=== PATIENT | male | born 1965 | race Caucasian/White ===

== ENCOUNTER 2019-04-15 01:27 | Day surgery (SDC) | payer OTHER, BC, SELFPAY ==
[2019-04-01 09:06] VITALS: BMI 29.2
[2019-04-15] VITALS (13 sets, daily range): BP systolic 110–145; BP diastolic 68–91; PULSE 82–107; RESP 12–21; TEMP 36.1–36.2; O2SAT 90–99; BMI 29.6
[2019-04-15] MEDS: LACTATED RINGERS 1,000 ML 30 ML IV CONT ×2 (07:00→11:29)
--- NOTE | 2019-04-15 07:03 | P.PNAN_ITS ---
Anes - Initial Pre Proc Eval Procedure: Operation Date: 04/15/19 07:30 Proposed Procedures p Left Arthroscopic Rotator Cuff Repair, Proceed As Indicated - Alex Blanco MD Date/Time: 04/15/19 07:03 Surgeon: Alex Blanco MD Pre Op Diagnosis: left rotator cuff tear Patient Data Age: 53 Gender: M Height: 1.75 m Weight: 91 kg Last Vital Signs Temp 36.1 C L 04/15/19 06:50 Pulse 90 04/15/19 06:50 Resp 14 04/15/19 06:50 BP 138/91 H 04/15/19 06:50 Pulse Ox 98 04/15/19 06:50 Allergies Allergy/AdvReac Type Severity Reaction Status Date / Time No Known Allergies Allergy Unverified 04/15/19 06:43 Home Medications Medication Instructions Recorded Confirmed Type chlorpheniramine maleate [Allergy 4 mg PO Q4H PRN 04/01/19 04/01/19 History 4-Hour] fluticasone propionate [Flonase 2 spray INTRANASAL DAILY 04/01/19 04/01/19 History Allergy Relief] naproxen sodium [Aleve] 220 mg PO DAILY 04/01/19 04/01/19 History omega 8-kbv-vcn-fish oil [Fish Oil] 1 cap PO DAILY 04/01/19 04/01/19 History Patient hx anesthesia problems: none Family hx anesthesia problems: none [facility] Social History Social History Smoking status: Never smoker Alcohol intake: current Anes - Eval Final PreProcedure Day of Procedure 04/15/19 07:03 Patient weight: overweight Heart: regular rate and rhythm Lungs: clear to auscultation and normal air movement Airway: Mallampati scale class II Neurological: alert and oriented Last oral intake: >/= 8 hours ASA classification: II Emergent: no Anesthetic plan: proceed Anesthesia type and monitoring: general ETT Informed Consent: The patient's anesthetic plan and its attendant risks and benefits were discussed with the patient/family/POA. Questions were solicited and answers provided to the satisfaction of the patient/family/POA.
--- NOTE | 2019-04-15 07:05 | WPDANESPNB ---
Anes - Peripheral Nerve Block Date/Time: 04/15/19 07:05 I have discussed with the patient/family/POA the placement of a peripheral nerve block for post-operative pain management, including associated risks, benefits, complications, and side effects. Alternative methods of post-operative analgesia were detailed. Questions were solicited and answers provided to the satisfaction of the patient/family/POA. Time-Out: A pre-procedural Time-Out was completed immediately before starting the procedure and confirmed: Patient Identification, Site, Procedure, Patient Position and the Availability of Requisite Equipment. Clinical Indications: Acute post-operative pain management requested by the operative surgeon. Nerve Block Insertion Note Anes-nerve block: supraclavicular left Patient position: supine Skin prep: chlorhexidine Needle: 22 gauge, stimulating, insulated echogenic needle. Needle length: 80 mm Technique: ultrasound (in plane) Injectate: bupivacaine 0.5% with epi 5 mcg/ml (20cc) Observations: tolerated well Complications: none
--- NOTE | 2019-04-15 07:22 | WPDHPUPDATE1 ---
History and Physical Update Update Date/Time: 04/15/19 07:22 History and Physical has been reviewed, including an updated exam of the patient. There are NO changes in the patient's condition. Risks, benefits, and alternatives have been discussed and questions answered. Patient agrees to proceed with procedure.
[2019-04-15] MEDS: ceFAZolin 2 GM/D5W 50 ML 2 GM/50 ML BAG IVPB (07:28)
[2019-04-15] MEDS: BUPIVACAINE/EPINEPHRINE 0.5% 30 ML VIAL INFILTRATE (08:13)
[2019-04-15] MEDS: IBUPROFEN IV 800 MG/200 ML 800 MG/200 ML BAG 400 MG IVPB (08:25)
--- NOTE | 2019-04-15 11:06 | PM.PROC ---
Procedure Note - Detailed Date of procedure: 04/15/19 Pre-op diagnosis: left rotator cuff tear Post-op diagnosis: other (1. Massive rotator cuff tear 2. Labral tear 3. Biceps tendinosis) Procedure performed: 1. Arthrosocopic left shoulder rotator cuff repair 2. subacromial decompression 3. biceps tenodesis 4. labral debridement. Description of procedure: Massive tear including the subscapularis, supraspinatus and infraspinatus. Mild retraction. Good tissue quality. 5 arthroscopic tunnel repair with 3 simple sutures each. Bicpes tenodesis incorporated into the subscapularis repair. Posterior labral tear as seen on MRI, was debrided. Acromioplasty performed. Implants: #2 suture tape and #2 orthocord. Arthrotunner device. Anesthesia: GETA and local Surgeon: Alex Blanco MD Estimated blood loss (mL): 50 Complications: None Condition: stable Disposition: PACU Findings: Operative detail: Preoperative antibiotics were given. The patient was bought brought to the operating room. A general anesthetic was administered. The patient was carefully positioned in the beach chair position. The head and neck were carefully positioned. The non operative extremity was also carefully positioned. The shoulder was prepped and draped in the usual sterile fashion. Examination under anesthesia revealed no significant findings. Standard posterior and anterior arthroscopic portals were established. 3 accessory portals were later created. Inflow was achieved with the arthroscopic pump using saline. The glenohumeral joint was carefully inspected. The posterior labrum was degenerative and torn. Debridement was perfomed with the shaver and punches. The biceps tendon was frayed and unstable. The upper subscapularis was completely torn. The biceps was released, for later tendodesis. The articular cartilage showed grade I chondromalacia throughout most of the humeral head. It appeared very slightly rough and soft. The glenoid showed no changes. Attention was turned to the subacromial space. A complete bursectomy was performed. The bursa was thickened and scarred, consistent with the previous arthroscopic surgery history. The debridement was tedious. Bleeding was more than usual. The supra and infra tears were type I with mild retraction. The tissue was good. The rotator cuff and footprint were lightly debrided. A modest acromioplasty was performed. The tear configuration was carefully assessed. The subscapularis was repaired first with two arthroscopic bone tunnels. The lateral drill pierced the biceps and entered bone at the groove. This was ideal to incorporate the biceps tenodesis into the cuff repair. Tension of the biceps was carefully optimized. A total of 5 sutures were passed and then tied. At this point, 3 tunnels were created at the rotator cuff. The ArthroTunneler technique was utilized. Three sutures were passed through each tunnel. All sutures were then passed through the cuff tissue. The sutures were tied arthroscopically. The arthroscopic instruments were removed. The wounds were closed with 3-0 Monocryl subcuticular suture and steri strips. There were no complications. A sling was applied and the patient brought to the recovery room.
[2019-04-15] MEDS: DICLOFENAC SODIUM 0.1% OPHTH SOLN 2.5 ML BOTTLE 1 DROP EACH EYE (12:22)
[2019-04-15] MEDS: PROPARACAINE HCL 0.5% 15 ML OPHTH SOLN 1 DROP EACH EYE (12:22)
--- NOTE | 2019-04-15 15:57 | SUR.PHASEII ---
1445; PT DRESSED AND READY TO GO HOME. PT HAS EXTRA IMMOBILIZER (DOMINGUEZ) IN BOX TO TAKE WITH THEM. PT AND SPOUSE ASKING FOR A PRESCRIPTION FOR VALIUM. 1450; CALLED DR WHEELER'S OFFICE. THEY WILL ASK THE DOCTOR. 1500; PT WANTS TO GO HOME. WILL WAIT FOR OFFICE TO CALL AT HOME.
== END 2019-04-15 15:00 | disposition home or self-care (01) ==
PROVIDERS: PCP Family Medicine; Visit Provider Orthopaedic Surgery
PROC: (CPT 29805; principal; 2019-04-15 07:30)
DX: M75.102 Unspecified rotator cuff tear or rupture of left shoulder, not specified as traumatic (principal); M75.82 Other shoulder lesions, left shoulder; M75.22 Bicipital tendinitis, left shoulder
CPT/HCPCS: 29827; 29828; 29826; A4565; A9270; J0131; J0330; J0690; J1100; J1741; J2250; J2405; J2704; J3010; J7120

== ENCOUNTER → 2021-01-27 08:52 | Outpatient (CLI) | payer BC, SELFPAY ==
--- NOTE | ~2021-01-27 | MR_ITS ---
EXAMINATION: MR shoulder RT wo con DATE: 01/27/2021 09:54 INDICATION: Right shoulder pain. TECHNIQUE: Magnetic resonance imaging (MRI) of the right shoulder was performed without intravenous c ontrast. Sequences included axial PD-weighted FS FSE, coronal oblique PD-weighted FS FSE and T2-weigh basilio FS FSE, and sagittal oblique T2-weighted FS FSE and T1-weighted FSE. COMPARISON: Right shoulder radiographs 01/03/2021 FINDINGS: Coracoacromial arch: The acromion undersurface is flat in morphology (type I). There is severe acromioclavicular joint ost eoarthritis. There is mild subacromial/subdeltoid bursitis. Rotator cuff: There is a full-thickness tear of anterior supraspinatus tendon measuring 8 mm anterior to posterior by 8 mm proximal to distal. There is a contiguous articular sided partial thickness tear of supraspin atus and infraspinatus tendons measuring 8 mm anterior to posterior by 26 mm proximal to distal. Jazmin s minor tendon is normal. There is severe subscapularis tendinopathy, which is thin superiorly. There is mild fatty atrophy of infraspinatus muscle belly. There is volume loss and mild fatty atrophy of superior subscapularis muscle belly. Biceps tendon and glenoid labrum: There is a complete tear of proximal biceps tendon. There is degenerative tearing of superior glenoid labrum. Fluid: There is a small glenohumeral joint effusion. Bones/cartilage: There is cartilage surface irregularity of glenoid and humeral head. IMPRESSION: 1. Full-thickness rotator cuff tear. 2. Mild glenohumeral joint chondrosis. 3. Small glenohumeral joint effusion and moderate subacromial/subdeltoid bursitis. 4. Complete tear of proximal biceps tendon. 5. Severe acromioclavicular joint osteoarthritis. Reviewed, dictated and finalized at location A. LE ATTACHING MACHINE OPERATOR IMPRESSION: 1. Full-thickness rotator cuff tear. 2. Mild glenohumeral joint chondrosis. 3. Small glenohumeral joint effusion and moderate subacromial/subdeltoid bursit is. 4. Complete tear of proximal biceps tendon. 5. Severe acromioclavicular joint osteoarthritis.
== END ==
PROVIDERS: Visit Provider Orthopaedic Surgery
DX: M75.101 Unspecified rotator cuff tear or rupture of right shoulder, not specified as traumatic (principal); M75.51 Bursitis of right shoulder; M25.411 Effusion, right shoulder; M19.011 Primary osteoarthritis, right shoulder
CPT/HCPCS: 73221

== ENCOUNTER 2021-11-20 00:30 | Day surgery (SDC) | payer BC, SELFPAY ==
[2021-02-19 11:35] VITALS: BMI 31.1
--- NOTE | 2021-02-19 11:53 | PC.NURSE ---
Report to the Outpatient Waiting Room, entrance under the green pavilion located off [facility], at time 1000 on date 02/26/21. OR Time: 1200. - You will be asked a series of questions to screen for COVID 19 for your protection. - A mask is required within the hospital. - No visitors are allowed at this time. Preoperative COVID Testing Requirements: No COVID Test needed if: (proof is required; if not received patient will have Rapid Test prior to entry) - Patient has received COVID Vaccine at least 14 days prior to procedure date or - Patient has positive COVID test result within last 90 days of surgery date. COVID Test needed if above criteria is not met Patients may have clear liquids (water, carbonated beverages, clear teas, apple juice) until 3 hours prior to surgery with a maximum of 20 ounces. - No food from midnight until time of surgery Take the following medications with a SIP of water the morning of surgery: NONE Medications to discontinue per physician: VITAMINS/SUPPLEMENTS Date to take last dose: 02/22/21 STOP ALEVE 7 DAYS PRIOR TO SURGERY PER DR. WHEELER Please no make-up, nail italian, hairspray, perfume, deodorant, or body powder the day of surgery. No jewelry (including any body piercings) or valuables the day of surgery, leave them at home. Please take a shower or bath the night before, or the morning of, surgery with an antibacterial soap. Wear comfortable, loose fitting clothing. - Jewelry must be removed prior to entering the operating room. Rings and piercings that are not removed may be cut off. - The hospital will not accept responsibility for valuables. - Please leave all valuables, including medications, at home the day of surgery. If you are going home after surgery, a licensed tow car driver must drive you home. - NO public transportation without another adult. - We recommend that an adult stay with you for 24 hours following discharge. - We also recommend that you do not drive, make important decision, drink alcoholic beverages, or take any drugs that were not prescribed by your health care provider for at least 24 hours after your discharge time. Follow any additional instructions given to you from your surgeon. Telephone instructions given to JERED FISHER and asked if any additional questions and then verbalized understanding. Patient advised to call surgeon office or pre surgery nurse liaison [phone] if any additional questions.
[2021-11-14 10:12] VITALS: BMI 31.1
--- NOTE | 2021-11-14 10:17 | PC.NURSE ---
Report to the Outpatient Waiting Room, entrance under the green pavilion located off [facility], at time 0830 on date 11/20/21. OR Time: 1030. Time changes happen often and if your time is changed the preop area will call you the afternoon before. - You and your visitor will be asked to self-screen and do not enter if you have any COVID symptoms. - Only one visitor and NO children visitors are allowed at this time. - The patient visitor is requested to leave or wait in car when not with patient due to restrictions. - A mask is required within the hospital. Patients may have clear liquids (water, carbonated beverages, clear teas, apple juice) until 3 hours prior to surgery with a maximum of 20 ounces. - No food from midnight until time of surgery Take the following medications with a SIP of water the morning of surgery: NONE Medications to discontinue per physician: VITAMINS/SUPPLEMENTS Date to take last dose: 11/16/21 STOP NAPROXEN 7 DAYS PRIOR TO SURGERY Please no make-up, nail filipino, hairspray, perfume, deodorant, or body powder the day of surgery. No jewelry (including any body piercings) or valuables the day of surgery, leave them at home. Please take a shower or bath the night before, or the morning of, surgery with an antibacterial soap. Wear comfortable, loose fitting clothing. - Jewelry must be removed prior to entering the operating room. Rings and piercings that are not removed may be cut off. - The hospital will not accept responsibility for valuables. - Please leave all valuables, including medications, at home the day of surgery. If you are going home after surgery, a licensed show horse driver must drive you home. - NO public transportation without another adult. - We recommend that an adult stay with you for 24 hours following discharge. - We also recommend that you do not drive, make important decision, drink alcoholic beverages, or take any drugs that were not prescribed by your health care provider for at least 24 hours after your discharge time. Follow any additional instructions given to you from your surgeon. If you or anyone in your household have experienced Covid symptoms in the past week, please notify your surgeon or the nurse liaison at the phone number below for possible testing. Telephone instructions given to PT - DELROY FISHER and asked if any additional questions and then verbalized understanding. Patient advised to call surgeon office or pre surgery nurse liaison [phone] if any additional questions.
--- NOTE | 2021-11-19 12:41 | P.PNAN_ITS ---
Anes - Initial Pre Proc Eval Procedure: Operation Date: 11/20/21 10:30 Proposed Procedures p Arthroscopic Right Rotator Cuff Repair - Alex Blanco MD Date/Time: 11/19/21 12:41 Surgeon: Alex Blanco MD Pre Op Diagnosis: right rotator cuff tear Patient Data Age: 56 Gender: M Height: 1.73 m Weight: 93 kg Allergies Allergy/AdvReac Type Severity Reaction Status Date / Time clavulanic acid Allergy Gastrointestinal Verified 11/16/21 08:55 Upset Home Medications Medication Instructions Recorded Confirmed Type fluticasone propionate 50 2 spray intranasal DAILY 04/01/19 11/20/21 History mcg/actuation nasal spray,suspension (Flonase Allergy Relief) omega 6-jca-bsg-fish oil 1,000 mg 1 cap PO DAILY 04/01/19 11/20/21 History (120 mg-180 mg) capsule (Fish Oil) naproxen sodium 220 mg capsule 220 mg PO BID PRN Pain 10/06/19 11/20/21 History (Aleve) multivitamin 1 tablet PO DAILY 02/19/21 11/20/21 History levocetirizine 5 mg tablet (Xyzal) 5 mg PO HS 11/14/21 11/20/21 History Patient hx anesthesia problems: none Family hx anesthesia problems: none Results Review: All pre-operative results and documents have been reviewed as part of the pre- operative evaluation. [facility] Past Medical History Medical History Biceps tendonitis on left Complete tear of right rotator cuff Labral tear of shoulder, degenerative Orthopedic aftercare Osteoarthritis, hip, bilateral Rotator cuff sprain Rotator cuff tear, left Surgical History Surgical History Status post left rotator cuff repair (~04/15/19) Family History Family History Other Family history of malignant neoplasm Social History Social History Smoking packs per day: 1 Smoking cigarettes per day: 20.0 Years smoked: 15 Smoking pack-years: 15.00 Smoking status: Former smoker Smoking end date: 02/17/13 Alcohol intake: current Drinks per week: 8 Substance use: never Substance use type: does not use Living arrangements: with family Spiritual care concerns: No Anes - Eval Final PreProcedure Day of Procedure 11/19/21 12:41 Patient weight: overweight Heart: regular rate and rhythm Lungs: clear to auscultation and normal air movement Airway: Mallampati scale class II Neurological: alert and oriented Last oral intake: >/= 8 hours ASA classification: II Emergent: no Anesthetic plan: proceed Anesthesia type and monitoring: general ETT Results Review: All pre-operative results and documents have been reviewed as part of the pre- operative evaluation. Informed Consent: The patient's anesthetic plan and its attendant risks and benefits were discussed with the patient/family/POA. Questions were solicited and answers provided to the satisfaction of the patient/family/POA.
[2021-11-20] VITALS (9 sets, daily range): BP systolic 118–156; BP diastolic 69–87; PULSE 75–97; RESP 12–16; TEMP 36.3; O2SAT 95–100
[2021-11-20] MEDS: LACTATED RINGERS 1,000 ML 30 ML IV CONT ×2 (09:06→14:00)
[2021-11-20] MEDS: ACETAMINOPHEN 500 MG TABLET 1000 MG PO (09:08)
[2021-11-20] MEDS: KETOROLAC 15 MG/ML VIAL (*BKC) IV PUSH (09:08)
--- NOTE | 2021-11-20 10:07 | WPDHPUPDATE1 ---
History and Physical Update Update Date/Time: 11/20/21 10:07 History and Physical has been reviewed, including an updated exam of the patient. There are NO changes in the patient's condition. Risks, benefits, and alternatives have been discussed and questions answered. Patient agrees to proceed with procedure.
[2021-11-20] MEDS: ceFAZolin 2 GM/D5W 50 ML 2 GM/50 ML BAG IVPB (10:13)
[2021-11-20] MEDS: BUPIVACAINE/EPINEPHRINE 0.25% 50 ML VIAL 20 ML INFILTRATE (10:53)
[2021-11-20] MEDS: oxyCODONE HCL (*CRX) 5 MG TAB IR PO (15:05)
--- NOTE | 2021-11-20 16:07 | W.PM.PROC2 ---
Procedure Note - Detailed Date of Procedure 11/20/21 Pre-op Diagnosis right rotator cuff tear Post-op Diagnosis Other (1. Rotator cuff tear, including the subscapularis. 2. Subacromial impingement 3. Degenerative labral tear) Procedure Performed Right shoulder 1. Arthroscopic rotator cuff repair 2. Arthroscopic subacromial decompression 3. Arthroscopic labral debridement Surgeon Alex Blanco MD Airplane Pilot Crop Dusting Yvette Cee PA-C Anesthesia General and Regional ( interscalene block) Findings Large supraspinatus crescent tear. Also large complete subscapularis tear. Biceps previously ruptured and scarred in the rotator interval. Degenerative labral tearing. Minimal early degenerative arthritis. No significant tendon retraction. Good tissue quality. Anatomic reconstruction with multiple points of fixation. Two bone tunnels in the lesser tuberosity for the subscapularis and 3 at the greater tuberosity for the wide, but minimally retracted supraspinatus tear. Description of Procedure Preoperative antibiotics were given. An interscalene block was administered in the preoperative area. The patient was bought brought to the operating room. A general anesthetic was administered. The patient was carefully positioned in the beach chair position. The head and neck were carefully positioned. The non operative extremity was also carefully positioned. The shoulder was prepped and draped in the usual sterile fashion. Examination was performed. Standard posterior and anterior arthroscopic portals were established. Inflow achieved with the arthroscopic pump using saline and epinephrine. The glenohumeral joint was carefully inspected. Biceps was noted to be ruptured and the labrum was debrided. The subscapularis was peeled away and scarred to the bursa. It was carefully released from the subacromial bursa and full release was confirmed to make sure that the tendon was mobile. A tag stitch was placed at the upper corner. Attention was turned to the subacromial space. A complete bursectomy was performed. Some scarring in the bursa consistent with prior decompression was noted. The rotator cuff and footprint were lightly debrided. A modest acromioplasty was performed. The tear configuration was carefully assessed. At this point, 2 tunnels were created at the lesser tuberosity for the subscapularis repair. Later 3 tunnels were created at the supraspinatus for the supraspinatus repair. 2-3 sutures were passed through each tunnel. All sutures were then passed through the cuff tissue. The sutures were tied arthroscopically. The arthroscopic instruments were removed. The wounds were closed with 3-0 Monocryl subcuticular suture and steri strips. There were no complications. A sling was applied and the patient brought to the recovery room. Physician sales assistant entertainment and media, Yvette Cee PA-C, required for surgery; including patient positioning, draping, arthroscopic camera operation, maintaining instrument position, suture retrieval, wound closure, and dressing and sling placement. Estimated Blood Loss -20.0 Pathology None sent Complications No immediate complications Condition Stable Disposition PACU [facility] Billing Surgery - Charge Forward: Surgery Billing
== END 2021-11-20 15:50 | disposition home or self-care (01) ==
PROVIDERS: PCP Family Medicine; Visit Provider Orthopaedic Surgery
PROC: (CPT 29805; principal; 2021-11-20 10:30)
DX: M75.121 Complete rotator cuff tear or rupture of right shoulder, not specified as traumatic (principal); M75.41 Impingement syndrome of right shoulder; M75.81 Other shoulder lesions, right shoulder; Z87.891 Personal history of nicotine dependence
CPT/HCPCS: 29827; 29826; A4565; A9270; J0690; J1100; J1170; J1885; J2250; J2405; J2704; J3010; J7120

== ENCOUNTER 2022-08-15 10:39 | Emergency (ER) | payer BC, SELFPAY ==
--- NOTE | ~2022-08-15 | CT_ITS ---
EXAMINATION: CT brain wo con INDICATION: Headache COMPARISON: None TECHNIQUE: Standard unenhanced head CT. The dose-length product (DLP) was 605.33 mGy-cm. The mA was a djusted according to patient size. Iterative reconstruction technique was employed. FINDINGS: There is no intracranial hemorrhage, acute infarction, or abnormal mass lesion. The ventric les are normal. There is no abnormal mass effect or midline shift. The samuel-white matter differentiat ion is normal. The basal cisterns are patent. The orbits are normal. The paranasal sinuses, mastoids and calvarium are normal. IMPRESSION: 1. No acute intracranial abnormality. Reviewed, dictated and finalized at location L.
--- NOTE | ~2022-08-15 | XR_ITS ---
Portable chest x-ray Comparison: None Clinical History: CVA Findings: Lungs are clear, without focal consolidation or pleural effusion. Cardiomediastinal silho uette is unremarkable. Bones and soft tissues are unremarkable. Impression: Clear lungs. Reviewed, dictated and finalized at location M. Impression: Clear lungs.
--- NOTE | 2022-08-15 10:43 | ECG_ITS ---
Measurements Intervals Delta Rate: 96 P: 71 AR: 131 QRS: -4 QRSD: 109 T: 17 QT: 350 QTc: 444 Interpretive Statements SINUS RHYTHM NO PREVIOUS ECG AVAILABLE FOR COMPARISON Electronically Signed On 08-15-2022 11:52:43 CDT by Petar Carrion M.D.
[2022-08-15 10:52] VITALS: BP 152/92; PULSE 97; RESP 20; TEMP 36.8; O2SAT 95
[2022-08-15 10:54] LABS: Glucose Point of Care 110 mg/dl (65-105)
[2022-08-15 10:56] LABS: Basophils Absolute Auto 0.1 K/mm3 (0.0-0.1); Eosinophils Absolute Auto 0.1 K/mm3 (0-0.3); Hematocrit 41.8 % (42.0-52.0); Hemoglobin 13.9 g/dL (14.0-18.0); Immature Granulocyte Absolute 0.01 K/mm3 (0.00-0.031); Immature Granulocyte Percent A 0.2 % (0-0.5); Lymphocytes Absolute Auto 2.12 K/mm3 (0.9-3.2); Lymphocytes Percent Auto 43.4 % (18.3-44.2); Mean Corpuscular HGB Conc 33.3 g/dl (32-36); Mean Corpuscular Volume 90.1 fl (80-100); Mean Platelet Volume 10.1 fl (7.4-10.4); Monocytes Absolute Auto 0.7 K/mm3 (0.1-0.6); Monocytes Percent Auto 13.9 % (2.6-8.5); Neutrophils Percent Auto 40.5 % (45.5-73.1); Platelet Count Result 267 k/mm3 (150-375); Red Blood Count 4.64 M/mm3 (4.6-6.20); Red Cell Distribution Width 12.6 % (11.5-14.5); White Blood Count 4.9 K/mm3 (4.5-10.0)
[2022-08-15 11:06] LABS: Alanine Aminotransferase 61 U/L (6-50); Albumin Level 4.6 g/dL (3.5-5.1); Alkaline Phosphatase 104 U/L (38-126); Anion Gap 9 mmol/L (8-16); Aspartate Amino Transferase 46 U/L (17-59); Bilirubin,Total 0.5 mg/dL (0.2-1.3); Blood Urea Nitrogen 14 mg/dL (9-20); Calcium 8.9 mg/dL (8.4-10.2); Carbon Dioxide 27 mmol/L (22-30); Chloride 102 mmol/L (98-107); Estimated CRCL calculation 105 ml/min; Estimated Glomerular Filt Rate > 60; Glucose 96 mg/dL (65-110); INR 0.9; Potassium 3.9 mmol/L (3.4-5.0); Sodium 138 mmol/L (137-145)
[2022-08-15 11:17] LABS: Troponin I < 0.012 ng/mL (0.000-0.034)
--- NOTE | 2022-08-15 12:16 | ED.NEUROSD ---
HPI - Neuro Symptoms/Deficit General Chief Complaint: Suspected CVA Stated Complaint: left visual problems, left leg tingling Time Seen by Provider: 08/15/22 12:01 History of Present Illness HPI Narrative: Patient is a 57-year-old male presenting with visual disturbances. Patient states that he was working and had been under a lot of pressure. He then noticed that he was unable to see completely out of his left eye. States that he saw a grindstone in the lateral aspect of his left visual field that looked like a red/green prism. States he was unable to read all of the numbers on his computer. States that he got up to walk around and became increasingly anxious. States that he had some chest tightness. States that he continued to see the disturbance in his vision so he called his who brought him in for evaluation. States that he felt nauseated and had some left leg tingling while in the car. No slurred speech or facial droop. No extremity weakness. No further complaints. Related Data Home Medications Medication Instructions Recorded Confirmed fluticasone propionate 50 2 spray intranasal DAILY 04/01/19 07/08/22 mcg/actuation nasal spray,suspension (Flonase Allergy Relief) omega 6-fbn-xzf-fish oil 1,000 mg 1 cap PO DAILY 04/01/19 07/08/22 (120 mg-180 mg) capsule (Fish Oil) multivitamin 1 tablet PO DAILY 02/19/21 07/08/22 levocetirizine 5 mg tablet (Xyzal) 5 mg PO HS 11/14/21 07/08/22 Allergies Allergy/AdvReac Type Severity Reaction Status Date / Time clavulanic acid Allergy Gastrointestinal Verified 07/08/22 08:07 Upset Review of Systems Review of Systems: All systems reviewed & are unremarkable except as noted in HPI and below PMFSH Past Medical History Medical History Biceps tendonitis on left Labral tear of shoulder, degenerative Orthopedic aftercare Surgical History Surgical History H/O repair of left rotator cuff (~04/15/19) Arthrosocopic left shoulder rotator cuff repair with subacromial decompression ,biceps tenodesis ,labral debridement. H/O repair of right rotator cuff (~11/20/21) Right shoulder Arthroscopic rotator cuff repair with subacromial decompression/ labral debridement Family History Family History Other Family history of malignant neoplasm Social History Social History Smoking packs per day: 1 Smoking cigarettes per day: 20.0 Years smoked: 15 Smoking pack-years: 15.00 Smoking status: Former smoker Smoking end date: 02/17/13 Alcohol intake: current Drinks per week: 8 Substance use: never Substance use type: does not use Lack of Transportation: No Lack of Food: Never True Current Housing: I Have Housing Concerned About Future Housing: No Difficulty Paying Gas/Electric Bills: No Difficulty Paying for Meds: No Currently Unemployed: No Education: Decline to Answer Difficulty w/ Childcare or Family Care: No Living arrangements: with family Spiritual care concerns: No Exam Narrative: GENERAL: Well-appearing, well-nourished, and in no acute distress. HEAD: Normocephalic, atraumatic. EYES: PERRLA and EOMI. ENT: Nares clear, no rhinorrhea or epistaxis. Mucous membranes moist. NECK: Supple. CHEST: Clear to auscultation. No respiratory distress. HEART: Regular rate and rhythm. No murmur heard. Normal peripheral pulses. ABDOMEN: Soft, nontender, nondistended EXTREMITIES: Normal range of motion. No edema. SKIN: Warm, dry, no rash. NEURO: No focal deficits. Alert and oriented x3. No pronator drift, no facial droop, no sensory deficits, 5 out of 5 strength in all extremities PSYCH: Normal mood and affect. Course Vital Signs Vital signs: Vital Signs Temperature 98.2 F 08/15/22 10:52 Pu
[2022-08-15 14:14] VITALS: BP 125/79; PULSE 83; RESP 16; O2SAT 100
== END 2022-08-15 14:15 | disposition home or self-care (01) ==
PROVIDERS: Emergency Medicine; Emergency Provider Emergency Medicine; PCP Family Medicine
DX: H53.8 Other visual disturbances (principal); R20.2 Paresthesia of skin; Z87.891 Personal history of nicotine dependence
CPT/HCPCS: 36415; 70450; 71045; 80053; 82948; 84484; 85025; 85610; 85730; 93005; 99284

== ENCOUNTER 2022-10-19 07:36 | Outpatient (CLI) | payer BC, SELFPAY ==
--- NOTE | 2022-10-19 08:07 | ECG_ITS ---
Measurements Intervals [place] Rate: 64 P: 68 OK: 168 QRS: -4 QRSD: 106 T: 15 QT: 385 QTc: 399 Interpretive Statements SINUS RHYTHM BASELINE ARTIFACT- I, III, AVL, AVF NORMAL ECG COMPARED TO ECG 08/15/2022 10:58:18 NO SIGNIFICANT CHANGES Electronically Signed On 10-19-2022 8:57:29 CDT by Wayne Cannon D.O.
[2022-10-19 08:12] LABS: Albumin Level 4.2 g/dL (3.5-5.1); Estimated Glomerular Filt Rate > 60; Glucose 94 mg/dL (65-110)
[2022-10-19 08:15] LABS: Hematocrit 44.6 % (42.0-52.0)
[2022-10-19 08:15] LABS: Urine Cotinine NEGATIVE
[2022-10-19 08:35] LABS: Hemoglobin A1C 5.4 % (<5.7)
== END 2022-10-19 07:37 | disposition home or self-care (01) ==
LOC: ANHLAB 07:38
PROVIDERS: PCP Family Medicine; Visit Provider Orthopaedic Surgery
DX: Z01.818 Encounter for other preprocedural examination (principal); Z79.899 Other long term (current) drug therapy; M16.12 Unilateral primary osteoarthritis, left hip; M16.11 Unilateral primary osteoarthritis, right hip
CPT/HCPCS: 80307; 82040; 82565; 82947; 83036; 85014; 85018; 93005

== ENCOUNTER 2023-01-02 14:00 | Outpatient (CLI) | payer BC, SELFPAY ==
[2023-01-02 15:10] LABS: Basophils Absolute Auto 0.1 K/mm3 (0.0-0.1); Basophils Percent Auto 1.1 % (0.2-1.2); Eosinophils Absolute Auto 0.1 K/mm3 (0-0.3); Eosinophils Percent Auto 0.9 % (0-4.4); Hematocrit 44.8 % (42.0-52.0); Hemoglobin 14.7 g/dL (14.0-18.0); Immature Granulocyte Absolute 0.01 K/mm3 (0.00-0.031); Immature Granulocyte Percent A 0.2 % (0-0.5); Lymphocytes Absolute Auto 1.75 K/mm3 (0.9-3.2); Lymphocytes Percent Auto 32.9 % (18.3-44.2); Mean Corpuscular HGB Conc 32.8 g/dl (32-36); Mean Corpuscular Hemoglobin 29.5 pg (26-34); Mean Corpuscular Volume 89.8 fl (80-100); Mean Platelet Volume 10.9 fl (7.4-10.4); Monocytes Absolute Auto 0.6 K/mm3 (0.1-0.6); Neutrophils Absolute Auto 2.8 K/mm3 (1.3-6.7); Neutrophils Percent Auto 52.9 % (45.5-73.1); Platelet Count Result 269 k/mm3 (150-375); Red Blood Count 4.99 M/mm3 (4.6-6.20); Red Cell Distribution Width 12.5 % (11.5-14.5); White Blood Count 5.3 K/mm3 (4.5-10.0)
[2023-01-02 15:19] LABS: Urine Cotinine NEGATIVE
[2023-01-02 15:22] LABS: Albumin Level 4.8 g/dL (3.5-5.1); Estimated Glomerular Filt Rate > 60; Glucose 77 mg/dL (65-110)
[2023-01-02 15:25] LABS: Hemoglobin A1C 5.1 % (<5.7)
== END 2023-01-02 14:01 | disposition home or self-care (01) ==
PROVIDERS: PCP Family Medicine; Visit Provider Orthopaedic Surgery
DX: M16.11 Unilateral primary osteoarthritis, right hip (principal); Z01.818 Encounter for other preprocedural examination
CPT/HCPCS: 80307; 82040; 82565; 82947; 83036; 85025; 87081

== ENCOUNTER 2023-01-30 01:14 | Day surgery (SDC) | payer BC, SELFPAY ==
--- NOTE | 2023-01-02 13:39 | PC.NURSE ---
PRE-OP INSTRUCTIONS, PLEASE READ CAREFULLY Report to the Outpatient Waiting Room, entrance under the green pavilion located off [facility], at time _0600_ on date _01/30/23_. Planned Procedure Time: _0730_. PACK A SMALL OVERNIGHT BAG AND LEAVE IN THE CAR ALONG WITH YOUR WALKER Time changes happen often and if your time is changed the preop area will call you the afternoon before. - You and your visitor will be asked to self-screen and do not enter if you have any COVID symptoms. - A mask is optional within the hospital at this time. -VISITING HOURS 8AM-8PM Patients may have clear liquids (water, carbonated beverages, clear teas, apple juice) until 3 hours prior to surgery (0430 AM) with a maximum of 20 ounces. - No food from midnight until time of surgery Take the following medications with a SIP of water the morning of surgery: _NASAL SPRAY & TYLENOL OR TRAMADOL IF NEEDED_ DO NOT STOP ANY OF YOUR OTHER PRESCRIPTION MEDICATIONS PRIOR TO SURGERY ?EXCEPT THE FOLLOWING Medications to discontinue per DR. WHEELER - _DICLOFENAC 7 DAYS PRIOR TO SURGERY, Date to take last dose 01/22/23_ Medications to discontinue per ANESTHESIA -_MULTIVITAMIN 3 DAYS PRIOR TO SURGERY, Date to take last dose 01/26/23_ Please no make-up, nail mongolian, hairspray, perfume, deodorant, or body powder the day of surgery. No jewelry (including any body piercings) or valuables the day of surgery, leave them at home. Please take a shower or bath the night before, or the morning of, surgery with an antibacterial soap. Wear comfortable, loose fitting clothing. Children are encouraged to wear pajamas. - Jewelry must be removed prior to entering the operating room. Rings and piercings that are not removed may be cut off. - The hospital will not accept responsibility for valuables. - Please leave all valuables, including medications, at home the day of surgery. If you are going home after surgery, a licensed residential recycle driver must drive you home. - NO public transportation without another adult if you receive anesthesia. - We recommend that an adult stay with you for 24 hours following discharge. - We also recommend that you do not drive, make important decision, drink alcoholic beverages, or take any drugs that were not prescribed by your health care provider for at least 24 hours after your discharge time. Follow any additional instructions given to you from your surgeon. If you or anyone in your household have experienced Covid symptoms in the past week, please notify your surgeon or the nurse liaison at the phone number below for possible testing. Instructions given to _PATIENT_and asked if any additional questions and then verbalized understanding. Patient advised to call surgeon office or pre surgery nurse liaison [phone] if any additional questions.
[2023-01-02 14:27] VITALS: BP 128/84; PULSE 88; RESP 20; TEMP 36.7; O2SAT 100
--- NOTE | 2023-01-29 14:52 | WPDANESEPPF ---
Anes - Initial Pre Proc Eval Procedure: Operation Date: 01/30/23 07:30 Proposed Procedures p Right Total Hip Arthroplasty - Alex Blanco MD Date/Time: 01/29/23 14:52 Surgeon: Alex Blanco MD Pre Op Diagnosis: primary oa right hip Patient Data Age: 57 Gender: M Height: 1.73 m Weight: 89.7 kg Last Vital Signs Temp 98.0 F 01/02/23 14:27 Pulse 88 01/02/23 14:27 Resp 20 01/02/23 14:27 BP 128/84 01/02/23 14:27 Pulse Ox 100 01/02/23 14:27 O2 Del Method Room Air 01/02/23 14:27 Allergies Allergy/AdvReac Type Severity Reaction Status Date / Time clavulanic acid AdvReac Gastrointestinal Verified 01/29/23 07:47 Upset Home Medications Medication Instructions Recorded Confirmed Type fluticasone propionate 50 2 spray intranasal DAILY 04/01/19 01/03/23 History mcg/actuation nasal spray,suspension (Flonase Allergy Relief) multivitamin 1 tablet PO DAILY 02/19/21 01/03/23 History levocetirizine 5 mg tablet (Xyzal) 5 mg PO HS 11/14/21 01/03/23 History tramadol 50 mg tablet 50 mg PO Q6H PRN pain #30 tabs 07/10/22 01/03/23 Rx acetaminophen 500 mg tablet 500 mg PO QID PRN Pain 01/02/23 01/03/23 History cholecalciferol (vitamin D3) 25 25 mcg PO DAILY 01/02/23 01/03/23 History mcg (1,000 unit) capsule maltodextrin See Rx Instructions .Route .COMPLEX 01/02/23 01/03/23 History diclofenac sodium 50 mg 50 mg PO BID #120 tabs 01/29/23 Rx tablet,delayed release Results Review: All pre-operative results and documents have been reviewed as part of the pre-operative evaluation. [facility] Past Medical History Medical History Biceps tendonitis on left Labral tear of shoulder, degenerative Orthopedic aftercare Surgical History Surgical History H/O repair of left rotator cuff (~04/15/19) Arthrosocopic left shoulder rotator cuff repair with subacromial decompression ,biceps tenodesis ,labral debridement. H/O repair of right rotator cuff (~11/20/21) Right shoulder Arthroscopic rotator cuff repair with subacromial decompression/ labral debridement Family History Family History Other Family history of malignant neoplasm Social History Social History Smoking packs per day: 1 Smoking cigarettes per day: 20.0 Years smoked: 15 Smoking pack-years: 15.00 Smoking status: Former smoker Tobacco type: cigarettes Second hand tobacco smoke exposure: No Smoking end date: 02/17/13 Additional smoking assessment comments: PT DENIES ALL FORMS OF TOBACCO USE Alcohol intake: current Drinks per week: 8 Alcohol use details: 6-10 WEEK Substance use: never Substance use type: does not use Lack of Transportation: No Lack of Food: Never True Current Housing: I Have Housing Concerned About Future Housing: No Difficulty Paying Gas/Electric Bills: No Difficulty Paying for Meds: No Currently Unemployed: No Education: Decline to Answer Difficulty w/ Childcare or Family Care: No Living arrangements: with friend(s) Additional living arrangements comments: LIVES WITH SO Spiritual care concerns: No Anes - Eval Final PreProcedure Day of Procedure 01/29/23 14:52 Results Review: All pre-operative results and documents have been reviewed as part of the pre-operative evaluation. Informed Consent: The patient's anesthetic plan and its attendant risks and benefits were discussed with the patient/family/POA. Questions were solicited and answers provided to the satisfaction of the patient/family/POA.
[2023-01-30] VITALS (18 sets, daily range): BP systolic 105–141; BP diastolic 58–89; PULSE 87–104; RESP 11–20; TEMP 36.3–36.8; O2SAT 94–100
--- NOTE | ~2023-01-30 | XR_ITS ---
EXAMINATION: XR hip RT min 2V DATE: 01/30/2023 10:16 INDICATION: Total right hip arthroplasty. Postop. TECHNIQUE: 2 views of right hip were obtained. COMPARISON: Right hip radiographs 01/02/2023 FINDINGS: There is a total right hip arthroplasty in near-anatomic alignment. No fracture. There is g as in the soft tissues, consistent with recent surgery. IMPRESSION: 1. Total right hip arthroplasty in near-anatomic alignment. Reviewed, dictated and finalized at location A. R OPERATOR TANKER TRUCK DRIVER
[2023-01-30] MEDS: ACETAMINOPHEN 500 MG TABLET 1000 MG PO ×4 (06:30→22:14)
[2023-01-30] MEDS: LACTATED RINGERS 1,000 ML 30 ML IV CONT ×2 (06:30→09:28)
--- NOTE | 2023-01-30 06:38 | WPDANESEPPF ---
Anes - Initial Pre Proc Eval Procedure: Operation Date: 01/30/23 07:30 Proposed Procedures p Right Total Hip Arthroplasty - Alex Blanco MD Date/Time: 01/30/23 06:38 Surgeon: Alex Blanco MD Pre Op Diagnosis: primary oa right hip Patient Data Age: 57 Gender: M Height: 1.73 m Weight: 89.7 kg Last Vital Signs Temp 36.7 C 01/02/23 14:27 Pulse 88 01/02/23 14:27 Resp 20 01/02/23 14:27 BP 128/84 01/02/23 14:27 Pulse Ox 100 01/02/23 14:27 O2 Del Method Room Air 01/02/23 14:27 Allergies Allergy/AdvReac Type Severity Reaction Status Date / Time clavulanic acid AdvReac Gastrointestinal Verified 01/29/23 07:47 Upset Home Medications Medication Instructions Recorded Confirmed Type fluticasone propionate 50 2 spray intranasal DAILY 04/01/19 01/03/23 History mcg/actuation nasal spray,suspension (Flonase Allergy Relief) multivitamin 1 tablet PO DAILY 02/19/21 01/03/23 History levocetirizine 5 mg tablet (Xyzal) 5 mg PO HS 11/14/21 01/03/23 History tramadol 50 mg tablet 50 mg PO Q6H PRN pain #30 tabs 07/10/22 01/03/23 Rx acetaminophen 500 mg tablet 500 mg PO QID PRN Pain 01/02/23 01/03/23 History cholecalciferol (vitamin D3) 25 25 mcg PO DAILY 01/02/23 01/03/23 History mcg (1,000 unit) capsule maltodextrin See Rx Instructions .Route .COMPLEX 01/02/23 01/03/23 History diclofenac sodium 50 mg 50 mg PO BID #120 tabs 01/29/23 Rx tablet,delayed release Patient hx anesthesia problems: none Family hx anesthesia problems: none Results Review: All pre-operative results and documents have been reviewed as part of the pre-operative evaluation. [facility] Past Medical History Medical History Biceps tendonitis on left Labral tear of shoulder, degenerative Orthopedic aftercare Surgical History Surgical History H/O repair of left rotator cuff (~04/15/19) Arthrosocopic left shoulder rotator cuff repair with subacromial decompression ,biceps tenodesis ,labral debridement. H/O repair of right rotator cuff (~11/20/21) Right shoulder Arthroscopic rotator cuff repair with subacromial decompression/ labral debridement Family History Family History Other Family history of malignant neoplasm Social History Social History Smoking packs per day: 1 Smoking cigarettes per day: 20.0 Years smoked: 15 Smoking pack-years: 15.00 Smoking status: Former smoker Tobacco type: cigarettes Second hand tobacco smoke exposure: No Smoking end date: 02/17/13 Additional smoking assessment comments: PT DENIES ALL FORMS OF TOBACCO USE Alcohol intake: current Drinks per week: 8 Alcohol use details: 6-10 WEEK Substance use: never Substance use type: does not use Lack of Transportation: No Lack of Food: Never True Current Housing: I Have Housing Concerned About Future Housing: No Difficulty Paying Gas/Electric Bills: No Difficulty Paying for Meds: No Currently Unemployed: No Education: Decline to Answer Difficulty w/ Childcare or Family Care: No Living arrangements: with friend(s) Additional living arrangements comments: LIVES WITH SO Spiritual care concerns: No Anes - Eval Final PreProcedure Day of Procedure 01/30/23 06:38 Patient weight: overweight Heart: regular rate and rhythm Lungs: clear to auscultation Airway: Mallampati scale class II Neurological: alert and oriented Last oral intake: >/= 8 hours ASA classification: II Emergent: no Anesthetic plan: proceed Anesthesia type and monitoring: general ETT and standard monitoring Results Review: All pre-operative results and documents have been reviewed as part of the pre-operative evaluation. Informed Consent: The patient's anesthetic plan and
[2023-01-30] MEDS: TRANEXAMIC ACID 1,000MG/ISO100 1,000 MG/100 ML BAG 200 MG IVPB (06:45)
--- NOTE | 2023-01-30 07:20 | WPDHPUPDATE1 ---
History and Physical Update Update Date/Time: 01/30/23 07:20 History and Physical has been reviewed, including an updated exam of the patient. There are NO changes in the patient's condition. Risks, benefits, and alternatives have been discussed and questions answered. Patient agrees to proceed with procedure.
[2023-01-30] MEDS: ceFAZolin 2 GM/D5W 50 ML 2 GM/50 ML BAG IVPB ×3 (07:50→22:15)
[2023-01-30] MEDS: fentaNYL CITRATE INJ (*CRX) 100 MCG/2 ML VIAL 25 MCG IV PUSH ×4 (10:09→10:52)
--- NOTE | 2023-01-30 10:34 | W.PM.PROC2 ---
Procedure Note - Detailed Date of Procedure 01/30/23 Pre-op Diagnosis primary oa right hip Post-op Diagnosis Same Procedure Performed Right Total Hip Arthroplasty Surgeon Alex Blanco MD Busperson Yvette Cee PA-C Anesthesia General Findings Excellent bone quality. No contracture. Bernard postoperative stability. Description of Procedure The patient was given preoperative antibiotics. A general anesthetic was administered. The patient was carefully placed in the lateral decubitus position on the PEG board. The shoulders and hips were carefully positioned for component and leg length positioning reference. The hip was prepped and draped in the usual sterile fashion. A longitudinal incision was created over the posterior aspect of the greater trochanter. Careful dissection was brought down through the deep fascia with electrocautery. A minimally invasive optimized posterior approach to the hip was performed. The short external rotators and capsule were taken down in an L-shaped capsulotomy. The tissue was tagged for later repair using number 2 high strength suture. The femoral neck was measured and taken in situ. The femoral head was removed. The acetabulum was carefully exposed. The inferior capsule was released. The labrum was resected. The acetabulum was sequentially reamed to the intended cup size. The cup was impacted into position with excellent press-fit. Typical anatomic landmarks, including the bony contact points as well as the inferior transverse acetabular ligament were used to confirm cup positioning with preoperative templating. Attention was turned to the femur, which was carefully exposed. The hip was reamed and then broached sequentially. Excellent press-fit was obtained with the broach. The hip was trialed. Measurements were utilized, including the lesser trochanter as well as the center of the femoral head and the tip of the trochanter, and excellent assessment of the offset and leg lengths were confirmed. The real component was impacted into position. Trialing confirmed appropriate leg length and offset with soft tissue balancing as well apparent feel of the leg, both at the knee and the heel. Soft tissues were assessed using the the iliotibial band. Reduction of the posterior capsule and external rotators were also used as a secondary assessment. The hip was copiously irrigated with pulsatile lavage antibiotic solution periodically throughout the procedure. The real components were then assembled and reduced. The hip was stable throughout typical maneuvers, including extension, external rotation to 70 degrees, the position of sleep as well as flexion to 90 degrees with internal rotation past 45 degrees. The shake test confirmed stability without impingement. Osteophytes were removed as necessary. The short external rotators and capsule were repaired back to the posterior trochanter through drill holes. The deep fascia was repaired with running number 2 Quill suture, followed by 0 Stratafix suture and 2-0 Stratafix suture in the dermis. Steri-Strips were placed on the skin, followed by a sterile silver occlusive dressing. There were no complications. Meticulous hemostasis was maintained with the AquaMantys device. The patient was brought to the recovery room in stable condition. There were no complications. Physician access services assistant, Yvette Cee PA-C, required for surgery; including patient positioning, draping, tissue retraction, maintaining instrument position, hip dislocation/ relocation, wound closure, and dressing placement. Implants The Accolade II hip stem, 127 degree size 5 , was utilized with excellent press-fit. The 52 mm Trident II acetabular component was impacted with excellent press-fit stability. 10 degree acetabular polyethylene liner. The +2.5, 36 mm Biolox ceramic femoral head was utilized. Estimated Blood Loss -200.0 Drains No Packing No Pathology None sent Complications No immed
[2023-01-30] MEDS: SENNA/DOCUSATE SODIUM TABLET 2 TAB PO (17:35)
[2023-01-30] MEDS: MELOXICAM 7.5 MG TABLET PO (17:35)
[2023-01-30] MEDS: ASPIRIN 81 MG ENTERIC TABLET PO (17:35)
[2023-01-30] MEDS: FAMOTIDINE 20 MG TABLET PO (20:54)
[2023-01-30] MEDS: LORATADINE 10 MG TABLET PO (20:54)
[2023-01-30] MEDS: CYCLOBENZAPRINE HCL 10 MG TABLET PO (22:15)
[2023-01-31 00:27] VITALS: BP 117/71; PULSE 89; RESP 18; TEMP 36.6; O2SAT 98
[2023-01-31 05:00] VITALS: BP 118/72; PULSE 91; RESP 17; TEMP 36.8; O2SAT 98
[2023-01-31] MEDS: ceFAZolin 2 GM/D5W 50 ML 2 GM/50 ML BAG IVPB (05:51)
[2023-01-31] MEDS: ACETAMINOPHEN 500 MG TABLET 1000 MG PO ×2 (05:52→11:50)
[2023-01-31 05:53] LABS: Basophils Percent Auto 0.2 % (0.2-1.2); Eosinophils Percent Auto 0.1 % (0-4.4); Hematocrit 36.6 % (42.0-52.0); Hemoglobin 11.9 g/dL (14.0-18.0); Immature Granulocyte Absolute 0.03 K/mm3 (0.00-0.031); Immature Granulocyte Percent A 0.4 % (0-0.5); Lymphocytes Absolute Auto 1.56 K/mm3 (0.9-3.2); Lymphocytes Percent Auto 19.2 % (18.3-44.2); Mean Corpuscular HGB Conc 32.5 g/dl (32-36); Mean Corpuscular Hemoglobin 29.4 pg (26-34); Mean Corpuscular Volume 90.4 fl (80-100); Monocytes Absolute Auto 1.2 K/mm3 (0.1-0.6); Neutrophils Absolute Auto 5.3 K/mm3 (1.3-6.7); Neutrophils Percent Auto 65.1 % (45.5-73.1); Platelet Count Result 206 k/mm3 (150-375); Red Blood Count 4.05 M/mm3 (4.6-6.20); Red Cell Distribution Width 12.8 % (11.5-14.5); White Blood Count 8.1 K/mm3 (4.5-10.0)
[2023-01-31 06:05] LABS: Anion Gap 5 mmol/L (8-16); Blood Urea Nitrogen 11 mg/dL (9-20); Calcium 8.7 mg/dL (8.4-10.2); Carbon Dioxide 27 mmol/L (22-30); Chloride 106 mmol/L (98-107); Estimated CRCL calculation 111 ml/min; Estimated Glomerular Filt Rate > 60; Glucose 106 mg/dL (65-110); Potassium 3.9 mmol/L (3.4-5.0); Sodium 138 mmol/L (137-145)
--- NOTE | 2023-01-31 08:19 | PM.DS ---
DS: Admitting Diagnosis Discharge Date 01/31/23 Admitting Diagnosis OA Right hip DS: Discharge Diagnosis Discharge Diagnosis (1) Status post total hip replacement, right: Code(s): Z96.641 - Presence of right artificial hip joint Status: Acute Assessment and Plan: Postop day 1: Right total Hip arthroplasty. Patient tolerated procedure well. No complications. Pain manageable with pain medication. No numbness or tingling. We had a lengthy discussion regarding postoperative wound care, limitations, expectations, and exercises. Patient shows good understanding. He has had initial physical therapy and is tolerating it well. DVT prophylaxis: 81 mg baby aspirin b.i.d. for 14 days. Pain medication: Percocet. Patient has followup appointment with Dr. Blanco in 3 weeks. DS: Summary Hospital Course Reason for hospitalization: Total hip arthroplasty Hospital Course: Patient tolerated procedure well. Has had initial PT/OT and made good progress. Status at Discharge Functional status at discharge: uses cane/walker Overall status at discharge: patient is progressing back to baseline Time Spent with Patient Time attestation: Total time spent providing and/or coordinating discharge services: Exam Narrative: 57 y/o normal weight male. Resting comfortably in bed. Wearing compression socks bilaterally. Dressing dry and intact with no drainage. Minimal swelling. No ecchymosis. No erythema. No hematoma. Range of motion limited due to pain. Calf nontender. Thigh nontender. Neurologic status intact. No varicosities. Distal pulses palpable. DS: Data Data Completed and Pending Labs on day of discharge: Labs from last 24 hours 01/31/23 05:21 WBC 8.1 RBC 4.05 L Hgb 11.9 L Hct 36.6 L MCV 90.4 MCH 29.4 MCHC 32.5 RDW 12.8 Plt Count 206 MPV 11.0 H Immature Gran % (Auto) 0.4 Neut % (Auto) 65.1 Lymph % (Auto) 19.2 Yancey % (Auto) 15.0 H Eos % (Auto) 0.1 Baso % (Auto) 0.2 Lymph # (Auto) 1.56 Yancey # (Auto) 1.2 H Eos # (Auto) 0.0 Baso # (Auto) 0.0 Abs Immat Gran (auto) 0.03 Absolute Neuts (auto) 5.3 Absolute Nucleated RBC 0.0 Nucleated RBC % 0.0 Sodium 138 Potassium 3.9 Chloride 106 Carbon Dioxide 27 Anion Gap 5 L BUN 11 Creatinine 0.70 Estim Creat Clear Calc 111 Estimated GFR > 60 Glucose 106 Calcium 8.7 Discharge Plan Discharge Patient Disposition: Home, Self-Care Discharge Instructions: See green instruction sheets Stand Alone Forms: General Discharge Instructions Follow-up/Referrals: Yvette Cee PA [Physician Manager Pool] - Discharge Medications: New aspirin 81 mg tablet,delayed release (DR/EC) 81 mg PO BID 14 Days Qty: 28 0RF oxycodone-acetaminophen 5-325 mg tablet 1 - 2 tablet PO Q4-6H MDD 6 PRN (Reason: pain) Qty: 30 0RF Continued multivitamin Tablet 1 tablet PO DAILY levocetirizine [Xyzal] 5 mg Tablet 5 mg PO HS fluticasone propionate [Flonase Allergy Relief] 50 mcg/actuation [place],Suspension 2 spray INTRANASAL DAILY acetaminophen 500 mg Tablet 500 mg PO QID PRN (Reason: Pain) cholecalciferol (vitamin D3) 25 mcg (1,000 unit) Capsule 25 mcg PO DAILY maltodextrin Powder See Rx Instructions .ROUTE .COMPLEX Rx Instructions: 1 SCOOP DAILY tramadol 50 mg tablet 50 mg PO Q6H PRN (Reason: pain) Qty: 30 0RF diclofenac sodium 50 mg tablet,delayed release (DR/EC) 50 mg PO BID Qty: 120 0RF Rx Instructions: discontinue otc alleve and other NSAIDs including Celebrex.
--- NOTE | 2023-01-31 08:21 | P.PNAN_ITS ---
Anes - Prog Note Post-Op Date/Time: 01/31/23 08:21 Cardiovascular status: normal Respiratory status: normal Airway patency: baseline Mental status: baseline Post-Op hydration status: normal Vital Signs: Last Vital Signs Temp 98.2 F 01/31/23 05:00 Pulse 91 01/31/23 05:00 Resp 17 01/31/23 05:00 BP 118/72 01/31/23 05:00 Pulse Ox 98 01/31/23 05:00 O2 Del Method Room Air 01/30/23 20:00 O2 Flow Rate 10 01/30/23 09:30 Pain Score (VAS): 0/10 I/O: Intake & Output 01/30/23 01/31/23 01/31/23 23:59 07:59 15:59 Intake Total 1110 700 Balance 1110 700 Laboratory Tests 01/31/23 05:21 01/31/23 05:21 01/31/23 05:21 WBC 8.1 RBC 4.05 L Hgb 11.9 L Hct 36.6 L MCV 90.4 MCH 29.4 MCHC 32.5 RDW 12.8 Plt Count 206 MPV 11.0 H Immature Gran % (Auto) 0.4 Neut % (Auto) 65.1 Lymph % (Auto) 19.2 Alfalfa % (Auto) 15.0 H Eos % (Auto) 0.1 Baso % (Auto) 0.2 Lymph # (Auto) 1.56 Alfalfa # (Auto) 1.2 H Eos # (Auto) 0.0 Baso # (Auto) 0.0 Abs Immat Gran (auto) 0.03 Absolute Neuts (auto) 5.3 Absolute Nucleated RBC 0.0 Nucleated RBC % 0.0 Sodium 138 Potassium 3.9 Chloride 106 Carbon Dioxide 27 Anion Gap 5 L BUN 11 Creatinine 0.70 Estim Creat Clear Calc 111 Estimated GFR > 60 Glucose 106 Calcium 8.7 Post-procedural complaints: none Patient Feedback: Patient satisfied with anesthetic care.
[2023-01-31] MEDS: SENNA/DOCUSATE SODIUM TABLET 2 TAB PO (08:58)
[2023-01-31] MEDS: MELOXICAM 7.5 MG TABLET PO (08:58)
[2023-01-31] MEDS: FAMOTIDINE 20 MG TABLET PO (08:58)
[2023-01-31] MEDS: ASPIRIN 81 MG ENTERIC TABLET PO (08:58)
[2023-01-31] MEDS: predniSONE 5 MG TABLET PO (08:59)
[2023-01-31] MEDS: polyethylene glycoL 3350 17 GM POWD.PACK PO (09:01)
[2023-01-31 11:42] VITALS: BP 131/77; PULSE 94; RESP 18; TEMP 36.6; O2SAT 95
== END 2023-01-31 13:00 | disposition home or self-care (01) ==
LOC: ANHSURGERY 07:24 → ANH2MED 11:37
PROVIDERS: Physician Assistant Surgical; PCP Family Medicine; Visit Provider Orthopaedic Surgery
PROC: (CPT 27130; principal; 2023-01-30 07:30)
DX: M16.11 Unilateral primary osteoarthritis, right hip (principal); Z87.891 Personal history of nicotine dependence
CPT/HCPCS: 27130; 36415; 73502; 80048; 85025; 86850; 86900; 86901; 97110; 97161; 97165; 97530; 97535; A9270; C1776; J0171; J0690; J1100; J1170; J1885; J2250; J2270; J2405; J2704; J2795; J3010; J7120; J7512

== ENCOUNTER 2023-02-19 09:55 | Outpatient (CLI) | payer BC, SELFPAY ==
--- NOTE | ~2023-02-19 | XR_ITS ---
AP view of the pelvis and AP and lateral views of the right hip Clinical history: Pain Findings: No acute fracture or dislocation is seen. Osseous alignment is anatomic. Right hip arthropl asty in place. There is mild degenerative change of the left hip joint. Soft tissues are unremarkable . Impression: No acute abnormality. Mild degenerative change left hip joint. Arthroplasty. Reviewed, dictated and finalized at location . INUING EDUCATION SPECIALIST Impression: No acute abnormality. Mild degenerative change left hip joint. Arthroplasty.
== END 2023-02-19 09:56 | disposition home or self-care (01) ==
PROVIDERS: PCP Family Medicine; Visit Provider Orthopaedic Surgery
DX: Z96.641 Presence of right artificial hip joint (principal)
CPT/HCPCS: 73502

== ENCOUNTER 2023-03-24 08:33 | Outpatient (CLI) | payer BC, SELFPAY ==
--- NOTE | ~2023-03-24 | XR_ITS ---
XR hip RT 2V w AP pelvis DATE: 03/24/2023 08:50 INDICATION: Orthopedic aftercare TECHNIQUE: AP pelvis. AP and lateral views of right hip COMPARISON: 02/19/2023 pelvis and right hip FINDINGS: Status post right total hip arthroplasty with normal alignment. Joint space narrowing and mild spurring at the left hip joint consistent with moderate left hip osteo arthritis. Normal alignment at the pubic symphysis and sacroiliac joints. No pelvic fracture or bone destruction . IMPRESSION: Status post right defibrillator biopsy Moderate left hip osteoarthritis Reviewed, dictated and finalized at location B. L PRINTING MACHINIST
== END 2023-03-24 08:34 | disposition home or self-care (01) ==
LOC: ANHIMG 08:35
PROVIDERS: PCP Family Medicine; Visit Provider Orthopaedic Surgery
DX: Z47.89 Encounter for other orthopedic aftercare (principal); M16.12 Unilateral primary osteoarthritis, left hip
CPT/HCPCS: 73502

== ENCOUNTER 2023-10-13 09:28 | Outpatient (CLI) | payer BC, SELFPAY ==
[2023-10-13 10:16] LABS: Hematocrit 42.6 % (42.0-52.0); Hemoglobin 14.4 g/dL (14.0-18.0)
[2023-10-13 10:39] LABS: Alanine Aminotransferase 36 U/L (6-50); Albumin Level 4.4 g/dL (3.5-5.1); Alkaline Phosphatase 96 U/L (38-126); Anion Gap 9 mmol/L (4-12); Aspartate Amino Transferase 31 U/L (17-59); Bilirubin,Total 0.6 mg/dL (0.2-1.3); Blood Urea Nitrogen 12 mg/dL (9-20); Calcium 8.9 mg/dL (8.4-10.2); Carbon Dioxide 29 mmol/L (22-30); Chloride 98 mmol/L (98-107); Cholesterol 215 mg/dL (0-200); Estimated Glomerular Filt Rate > 60; Glucose 89 mg/dL (65-110); HDL Direct 63 mg/dL; Potassium 4.2 mmol/L (3.4-5.0); Sodium 136 mmol/L (137-145); Triglycerides 202 mg/dL (<150)
[2023-10-13 10:51] LABS: LDL Cholesterol Direct 97 mg/dL
[2023-10-13 11:10] LABS: Prostate Specific Antigen 0.5 ng/mL (< OR = 4.0)
== END 2023-10-13 09:29 | disposition home or self-care (01) ==
PROVIDERS: PCP Family Medicine; Referring Provider Nurse Practitioner Family; Visit Provider Orthopaedic Surgery
DX: Z01.818 Encounter for other preprocedural examination (principal); M16.12 Unilateral primary osteoarthritis, left hip
CPT/HCPCS: 36415; 80053; 80061; 84153; 85014; 85018

== ENCOUNTER 2023-10-27 08:11 | Outpatient (CLI) | payer BC, SELFPAY ==
[2023-10-27 09:20] LABS: Basophils Absolute Auto 0.1 K/mm3 (0.0-0.1); Basophils Percent Auto 1.1 % (0.2-1.2); Eosinophils Absolute Auto 0.1 K/mm3 (0-0.3); Eosinophils Percent Auto 1.6 % (0-4.4); Hematocrit 42.5 % (42.0-52.0); Hemoglobin 14.3 g/dL (14.0-18.0); Immature Granulocyte Absolute 0.02 K/mm3 (0.00-0.031); Immature Granulocyte Percent A 0.4 % (0-0.5); Lymphocytes Absolute Auto 1.46 K/mm3 (0.9-3.2); Lymphocytes Percent Auto 32.7 % (18.3-44.2); Mean Corpuscular HGB Conc 33.6 g/dl (32-36); Mean Corpuscular Volume 89.3 fl (80-100); Mean Platelet Volume 10.2 fl (7.4-10.4); Monocytes Absolute Auto 0.6 K/mm3 (0.1-0.6); Monocytes Percent Auto 14.3 % (2.6-8.5); Neutrophils Absolute Auto 2.2 K/mm3 (1.3-6.7); Neutrophils Percent Auto 49.9 % (45.5-73.1); Platelet Count Result 234 k/mm3 (150-375); Red Blood Count 4.76 M/mm3 (4.6-6.20); Red Cell Distribution Width 12.1 % (11.5-14.5); White Blood Count 4.5 K/mm3 (4.5-10.0)
[2023-10-27 09:53] LABS: Hemoglobin A1C 5.7 % (<5.7)
[2023-10-27 10:05] LABS: Urine Cotinine NEGATIVE
[2023-10-27 10:30] LABS: MRSA (PCR) NOT DETECTED (NOT DETECTE)
== END 2023-10-27 08:12 | disposition home or self-care (01) ==
PROVIDERS: PCP Family Medicine; Visit Provider Orthopaedic Surgery
DX: Z01.818 Encounter for other preprocedural examination (principal); M16.12 Unilateral primary osteoarthritis, left hip
CPT/HCPCS: 80307; 83036; 85025; 87641

== ENCOUNTER 2023-11-04 08:16 | Outpatient (CLI) | payer BC, SELFPAY ==
--- NOTE | 2023-11-04 | EST_ITS ---
Patient Info Name: Simeon Kelly Age: 58 years : 1965 Gender: Male Ht: 68 in Wt: 207 lbs BSA: 2.15 m2 HR: 84 bpm BP: 134 / 78 mmHg Exam Date: 11/04/2023 9:05 AM Exam Location: Echo Lab Patient Status: Outpatient Admit Date: 11/04/2023 Staff Ordering Physician: Susanne, Yodit Zurita NP Attending Provider: Susanne, Yodit Zurita NP Exercise Technologist: Juliann Doshi [facility] Exercise Physician: Wayne Cannon DO Exam Type: CA stress test treadmill Study Info A treadmill exercise stress test was performed. Summary 1. 1. Negative James exercise stress test for ischemic ST changes by ECG criteria. 2. 2. Reduced functional capacity, achieving 8 METs of workload. 3. 3. Appropriate HR response to exercise. 4. 4. Appropriate HR recovery at 1 minute post exercise. 5. 5. No imaging with stress testing. 6. 6. Patient informed of the above results. Protocol: James Stress ECG Details Stage: REST Duration (min): 3 min : 50 sec Speed (mph): 0.0 Grade (%): 0 HR (bpm): 93 SBP (mmHg): 134 DBP (mmHg): 78 METS: --- Stage: REST Duration (min): 29 min : 38 sec Speed (mph): 0.0 Grade (%): 0 HR (bpm): 84 SBP (mmHg): 134 DBP (mmHg): 78 METS: --- Stage: STAGE 1 Duration (min): 1 min : 0 sec Speed (mph): 1.7 Grade (%): 10 HR (bpm): 110 SBP (mmHg): 134 DBP (mmHg): 78 METS: --- Stage: STAGE 1 Duration (min): 2 min : 0 sec Speed (mph): 1.7 Grade (%): 10 HR (bpm): 116 SBP (mmHg): 134 DBP (mmHg): 78 METS: --- Stage: STAGE 1 Duration (min): 3 min : 0 sec Speed (mph): 1.7 Grade (%): 10 HR (bpm): 122 SBP (mmHg): 174 DBP (mmHg): 85 METS: --- Stage: STAGE 2 Duration (min): 1 min : 0 sec Speed (mph): 2.5 Grade (%): 12 HR (bpm): 118 SBP (mmHg): 174 DBP (mmHg): 85 METS: --- Stage: STAGE 2 Duration (min): 2 min : 0 sec Speed (mph): 2.5 Grade (%): 12 HR (bpm): 134 SBP (mmHg): 187 DBP (mmHg): 84 METS: --- Stage: STAGE 2 Duration (min): 3 min : 0 sec Speed (mph): 2.5 Grade (%): 12 HR (bpm): 136 SBP (mmHg): 187 DBP (mmHg): 84 METS: --- Stage: STAGE 3 Duration (min): 0 min : 47 sec Speed (mph): 3.4 Grade (%): 14 HR (bpm): 147 SBP (mmHg): 187 DBP (mmHg): 84 METS: --- Stage: RECOVERY Duration (min): 0 min : 12 sec Speed (mph): 1.5 Grade (%): 0 HR (bpm): 148 SBP (mmHg): 192 DBP (mmHg): 81 METS: --- Stage: RECOVERY Duration (min): 1 min : 12 sec Speed (mph): 0.0 Grade (%): 0 HR (bpm): 110 SBP (mmHg): 192 DBP (mmHg): 81 METS: --- Stage: RECOVERY Duration (min): 2 min : 12 sec Speed (mph): 0.0 Grade (%): 0 HR (bpm): 99 SBP (mmHg): 192 DBP (mmHg): 81 METS: --- Stage: RECOVERY Duration (min): 3 min : 9 sec Speed (mph): 0.0 Grade (%): 0 HR (bpm): 93 SBP (mmHg): 136 DBP (mmHg): 85 METS: --- Rest HR: 84 bpm Peak HR: 148 bpm Re
== END 2023-11-04 08:17 | disposition home or self-care (01) ==
LOC: ANHCARD 08:17
PROVIDERS: PCP Family Medicine; Visit Provider Nurse Practitioner Family
DX: R07.89 Other chest pain (principal); I10 Essential (primary) hypertension
CPT/HCPCS: 93017

== ENCOUNTER 2023-11-20 02:27 | Day surgery (SDC) | payer BC, SELFPAY ==
[2023-10-27 08:24] VITALS: BMI 31.6
--- NOTE | 2023-10-27 08:46 | PC.NURSE ---
Report to the Outpatient Waiting Room, entrance under the green pavilion located off [facility], at time 8:30 AM on date11/20/23 . Planned Procedure Time: _10:30 AM .? Time changes happen often and if your time is changed the preop area will call you the afternoon before. - You and your visitor will be asked to self-screen and do not enter if you have any COVID symptoms. Please call surgeon ( 7:30AM)if you need to reschedule. - A mask is optional within the hospital at this time. Patients may have clear liquids (water, carbonated beverages, clear teas, apple juice) until 3 hours prior to surgery with a maximum of 20 ounces. - No food from midnight until time of surgery and no smoking - Infants may have breast milk until 4 hours before surgery, formula 6 hours prior to surgery. - Children will be allowed to drink immediately following surgery.? If applicable, please bring a bottle or sippy cup to assist with drinking. Juice, water, soda, and popsicles are readily available.? For infants on formula, please bring formula the day of surgery.? Pacifiers are allowed. Take only the following medications with a SIP of water on the morning of surgery: ___PAROXETINE DO NOT STOP ANY OF YOUR OTHER PRESCRIPTION MEDICATIONS PRIOR TO SURGERY EXCEPT THE FOLLOWING Medications to discontinue per physician ___HOLD DICLOFENAC 7 DAYS PRE OP PER DR WHEELER.LAST DOSE 11/13/23 MAY TAKE TYLENOL IF NEEDED IF FOR PAIN. HOLD ALL VITAMINS AND SUPPLEMENTS 3 DAYS PRE OP.LAST DOSE 11/16/23 Please no make-up, nail upper sorbian, hairspray, perfume, deodorant, or body powder the day of surgery.? No jewelry (including any body piercings) or valuables the day of surgery, leave them at home.? Please take a shower or bath the night before, or the morning of, surgery with an antibacterial soap.? Wear comfortable, loose fitting clothing.? Children are encouraged to wear pajamas. - Jewelry must be removed prior to entering the operating room.? Rings and piercings that are not removed may be cut off. - The hospital will not accept responsibility for valuables.? - Please leave all valuables, including medications, at home the day of surgery. If you are going home after surgery, a licensed otr company truck driver must drive you home.? - NO public transportation without another adult if you receive anesthesia. - We recommend that an adult stay with you for 24 hours following discharge. - We also recommend that you do not drive, make important decision, drink alcoholic beverages, or take any drugs that were not prescribed by your health care provider for at least 24 hours after your discharge time. Follow any additional instructions given to you from your surgeon. VERBAL AND WRIITTEN instructions given to __PATIENT and asked if any additional questions and then verbalized understanding. Patient advised to call surgeon office or pre surgery nurse liaison [phone] if any additional questions.
[2023-10-27 09:44] VITALS: BP 132/95; PULSE 85; RESP 18; TEMP 36.7; O2SAT 98
[2023-11-20] VITALS (12 sets, daily range): BP systolic 133–161; BP diastolic 80–99; PULSE 74–99; RESP 12–18; TEMP 36.2–36.9; O2SAT 93–100
--- NOTE | ~2023-11-20 | XR_ITS ---
EXAMINATION: XR hip LT min 2V DATE: 11/20/2023 12:52 INDICATION: Left hip arthroplasty TECHNIQUE: 2 views left hip FINDINGS: There is a left total hip arthroplasty in expected position. Subcutaneous gas with soft ti ssue swelling are consistent with recent surgery. IMPRESSION: 1. Recent left total hip arthroplasty. Reviewed, dictated and finalized at location B.
--- NOTE | 2023-11-20 08:25 | WPDANESEPPF ---
Anes - Initial Pre Proc Eval Procedure: Operation Date: 11/20/23 10:30 Proposed Procedures p Left Total Hip Arthroplasty - Alex Blanco MD Date/Time: 11/20/23 08:25 Surgeon: Alex Blanco MD Pre Op Diagnosis: primary oa left hip Patient Data Age: 58 Gender: M Height: 1.74 m Weight: 95.7 kg Last Vital Signs Temp 36.7 C 10/27/23 09:44 Pulse 85 10/27/23 09:44 Resp 18 10/27/23 09:44 BP 132/95 H 10/27/23 09:44 Pulse Ox 98 10/27/23 09:44 O2 Del Method Room Air 10/27/23 09:44 Allergies Allergy/AdvReac Type Severity Reaction Status Date / Time clavulanic acid AdvReac Gastrointestinal Verified 11/12/23 15:50 Upset Home Medications Medication Instructions Recorded Confirmed Type multivitamin 1 tablet PO DAILY 02/19/21 11/12/23 History acetaminophen 500 mg tablet 500 mg PO QID PRN Pain 01/02/23 11/12/23 History cholecalciferol (vitamin D3) 25 25 mcg PO DAILY 01/02/23 11/12/23 History mcg (1,000 unit) capsule maltodextrin See Rx Instructions .Route .COMPLEX 01/02/23 11/12/23 History diclofenac sodium 50 mg 50 mg PO BID #120 tabs 10/07/23 11/12/23 Rx tablet,delayed release tramadol 50 mg tablet See Rx Instructions PO BID PRN 10/07/23 11/12/23 Rx pain #60 tabs cetirizine 10 mg tablet (Zyrtec) 10 mg PO DAILY 10/27/23 11/12/23 History losartan 25 mg tablet 25 mg PO QPM 10/27/23 11/12/23 History paroxetine HCl 10 mg tablet 10 mg PO DAILY 10/27/23 11/12/23 History Patient hx anesthesia problems: none Family hx anesthesia problems: none Results Review: All pre-operative results and documents have been reviewed as part of the pre-operative evaluation. [facility] Past Medical History Medical History Biceps tendonitis on left Labral tear of shoulder, degenerative Orthopedic aftercare Surgical History Surgical History H/O repair of left rotator cuff (~04/15/19) Arthrosocopic left shoulder rotator cuff repair with subacromial decompression ,biceps tenodesis ,labral debridement. H/O repair of right rotator cuff (~11/20/21) Right shoulder Arthroscopic rotator cuff repair with subacromial decompression/ labral debridement History of total right hip arthroplasty (~01/30/23) Family History Family History Other Family history of malignant neoplasm Social History Social History Smoking packs per day: 1 Smoking cigarettes per day: 20.0 Years smoked: 15 Smoking pack-years: 15.00 Smoking status: Former smoker Tobacco type: cigarettes Second hand tobacco smoke exposure: No Smoking end date: 02/17/13 Additional smoking assessment comments: DENIES ANY FORM OF TOBACCO USE Alcohol intake: current Drinks per week: 6 Alcohol use details: 6-10 WEEK Substance use: never Substance use type: does not use Do You Feel Safe in your Home?: Yes Lack of Transportation: No Lack of Food: Never True Current Housing: I Have Housing Concerned About Future Housing: No Difficulty Paying Gas/Electric Bills: No Difficulty Paying for Meds: No Currently Unemployed: No Education: High School Diploma/GED Difficulty w/ Childcare or Family Care: No Living arrangements: with family Additional living arrangements comments: LIVES WITH SO Spiritual care concerns: No Anes - Eval Final PreProcedure Day of Procedure 11/20/23 08:25 Patient weight: obese Heart: regular rate and rhythm Lungs: clear to auscultation and normal air movement Airway: Mallampati scale class II Neurological: alert and oriented Last oral intake: >/= 8 hours ASA classification: II Emergent: no Anesthetic plan: proceed Anesthesia type and monitoring: general ETT Results Review: All pre-operative results and documents have been reviewe
[2023-11-20] MEDS: ACETAMINOPHEN 500 MG TABLET 1000 MG PO (08:50)
[2023-11-20] MEDS: LACTATED RINGERS 1,000 ML 30 ML IV CONT ×3 (09:30→12:30)
[2023-11-20] MEDS: TRANEXAMIC ACID 1,000MG/ISO100 1,000 MG/100 ML BAG 200 MG IVPB (09:56)
--- NOTE | 2023-11-20 10:28 | WPDHPUPDATE1 ---
History and Physical Update Update Date/Time: 11/20/23 10:28 History and Physical has been reviewed, including an updated exam of the patient. There are NO changes in the patient's condition. Risks, benefits, and alternatives have been discussed and questions answered. Patient agrees to proceed with procedure.
--- NOTE | 2023-11-20 10:30 | WPDANESEPPF ---
Anes - Initial Pre Proc Eval Procedure: Operation Date: 11/20/23 10:30 Proposed Procedures p Left Total Hip Arthroplasty - Alex Blanco MD Date/Time: 11/20/23 10:30 Surgeon: Alex Blanco MD Pre Op Diagnosis: primary oa left hip Patient Data Age: 58 Gender: M Height: 1.74 m Weight: 92 kg Last Vital Signs Temp 97.7 F 11/20/23 09:00 Pulse 86 11/20/23 09:00 Resp 16 11/20/23 09:00 BP 161/99 H 11/20/23 09:00 Pulse Ox 100 11/20/23 09:00 O2 Del Method Room Air 11/20/23 09:00 Allergies Allergy/AdvReac Type Severity Reaction Status Date / Time clavulanic acid AdvReac Gastrointestinal Verified 11/20/23 08:44 Upset Home Medications Medication Instructions Recorded Confirmed Type multivitamin 1 tablet PO DAILY 02/19/21 11/20/23 History acetaminophen 500 mg tablet 500 mg PO QID PRN Pain 01/02/23 11/20/23 History cholecalciferol (vitamin D3) 25 25 mcg PO DAILY 01/02/23 11/20/23 History mcg (1,000 unit) capsule maltodextrin See Rx Instructions .Route .COMPLEX 01/02/23 11/12/23 History diclofenac sodium 50 mg 50 mg PO BID #120 tabs 10/07/23 11/12/23 Rx tablet,delayed release tramadol 50 mg tablet See Rx Instructions PO BID PRN 10/07/23 11/20/23 Rx pain #60 tabs cetirizine 10 mg tablet (Zyrtec) 10 mg PO DAILY 10/27/23 11/20/23 History losartan 25 mg tablet 25 mg PO QPM 10/27/23 11/20/23 History paroxetine HCl 10 mg tablet 10 mg PO DAILY 10/27/23 11/20/23 History Laboratory Tests 11/20/23 08:53 Blood Type O Negative Antibody Screen Negative Patient hx anesthesia problems: none Family hx anesthesia problems: none Results Review: All pre-operative results and documents have been reviewed as part of the pre-operative evaluation. [facility] Past Medical History Medical History Biceps tendonitis on left Labral tear of shoulder, degenerative Orthopedic aftercare Surgical History Surgical History H/O repair of left rotator cuff (~04/15/19) Arthrosocopic left shoulder rotator cuff repair with subacromial decompression ,biceps tenodesis ,labral debridement. H/O repair of right rotator cuff (~11/20/21) Right shoulder Arthroscopic rotator cuff repair with subacromial decompression/ labral debridement History of total right hip arthroplasty (~01/30/23) Family History Family History Other Family history of malignant neoplasm Social History Social History Smoking packs per day: 1 Smoking cigarettes per day: 20.0 Years smoked: 15 Smoking pack-years: 15.00 Smoking status: Former smoker Tobacco type: cigarettes Second hand tobacco smoke exposure: No Smoking end date: 02/17/13 Additional smoking assessment comments: DENIES ANY FORM OF TOBACCO USE Alcohol intake: current Drinks per week: 6 Alcohol use details: 6-10 WEEK Substance use: never Substance use type: does not use Do You Feel Safe in your Home?: Yes Lack of Transportation: No Lack of Food: Never True Current Housing: I Have Housing Concerned About Future Housing: No Difficulty Paying Gas/Electric Bills: No Difficulty Paying for Meds: No Currently Unemployed: No Education: High School Diploma/GED Difficulty w/ Childcare or Family Care: No Living arrangements: with family Additional living arrangements comments: LIVES WITH SO Spiritual care concerns: No Anes - Eval Final PreProcedure Day of Procedure 11/20/23 10:30 Patient weight: overweight Heart: regular rate and rhythm Lungs: clear to auscultation Airway: Mallampati scale class II and special considerations (Missing one tooth, L lower aspect. ) Neurological: alert and oriented Last oral intake: >/= 8 hours ASA classification: II A
[2023-11-20] MEDS: ceFAZolin 2 GM/D5W 50 ML 2 GM/50 ML BAG IVPB ×2 (10:34→17:06)
[2023-11-20] MEDS: SODIUM CHLORIDE 0.9% IV 37.7 ML, MORPHINE SULFATE INJ (*CRX) 2 MG, ROPivacaine HCL 1% 2... INFILTRATE (10:41)
[2023-11-20] MEDS: fentaNYL CITRATE INJ (*CRX) 100 MCG/2 ML VIAL 25 MCG IV PUSH ×3 (12:55→13:45)
[2023-11-20] MEDS: oxyCODONE/ACETAMINOPHEN (*CRX) 10-325 MG TABLET 1 TAB PO ×2 (14:35→23:12)
--- NOTE | 2023-11-20 14:44 | W.PM.PROC2 ---
Procedure Note - Detailed Date of Procedure 11/20/23 Pre-op Diagnosis Primary osteoarthritis left hip. Post-op Diagnosis Same Procedure Performed Left Total Hip Arthroplasty Surgeon Alex Blanco MD Device Engineer Yvette Cee PA-C Anesthesia General Findings Good bone quality. No significant contractures. Similar anatomy to the contralateral hip. Prosthetic sizing identical. Description of Procedure The patient was given preoperative antibiotics. A general anesthetic was administered. The patient was carefully placed in the lateral decubitus position on the PEG board. The shoulders and hips were carefully positioned for component and leg length positioning reference. The hip was prepped and draped in the usual sterile fashion. A longitudinal incision was created over the posterior aspect of the greater trochanter. Careful dissection was brought down through the deep fascia with electrocautery. A minimally invasive optimized posterior approach to the hip was performed. The short external rotators and capsule were taken down in an L-shaped capsulotomy. The tissue was tagged for later repair using number 2 high strength suture. The femoral neck was measured and taken in situ. The femoral head was removed. The acetabulum was carefully exposed. The inferior capsule was released. The labrum was resected. The acetabulum was sequentially reamed to one over the intended cup size. The cup was impacted into position with excellent press-fit. Typical anatomic landmarks, including the bony contact points as well as the inferior transverse acetabular ligament were used to confirm cup positioning with preoperative templating. Attention was turned to the femur, which was carefully exposed. The hip was reamed and then broached sequentially. Excellent press-fit was obtained with the broach. The hip was trialed. Measurements were utilized, including the lesser trochanter as well as the center of the femoral head and the tip of the trochanter, and excellent assessment of the offset and leg lengths were confirmed. The real component was impacted into position. Trialing confirmed appropriate leg length and offset with soft tissue balancing as well apparent feel of the leg, both at the knee and the heel. Soft tissues were assessed using the the iliotibial band. Reduction of the posterior capsule and external rotators were also used as a secondary assessment. The hip was copiously irrigated with pulsatile lavage periodically throughout the procedure. The real components were then assembled and reduced. The hip was stable throughout typical maneuvers, including extension, external rotation to 70 degrees, the position of sleep as well as flexion to 90 degrees with internal rotation past 35 degrees. The shake test confirmed stability without impingement. Osteophytes were removed as necessary. The short external rotators and capsule were repaired back to the posterior trochanter through drill holes. The deep fascia was repaired with running number 2 barbed suture, followed by 2-0 Stratafix suture and 3-0 Stratafix suture in the dermis. Steri-Strips were placed on the skin, followed by a sterile occlusive dressing. There were no complications. Meticulous hemostasis was maintained with the AquaMantys device. The patient was brought to the recovery room in stable condition. There were no complications. Physician programs assistant, Yvette Cee PA-C, required for surgery; including patient positioning, draping, tissue retraction, maintaining instrument position, hip dislocation/ relocation, wound closure, and dressing placement. Implants The Accolade II hip stem, 127 degree size 5 , was utilized with excellent press-fit. The 52 mm Trident II acetabular component was impacted with excellent press-fit stability. 10 degree elevated polyethylene liner the +2.5, 36 mm Biolox ceramic femoral head was utilized. Estimated Blood Loss 200 Drains No Packing No Patho
--- NOTE | 2023-11-20 15:03 | ADMGEN ---
This patient, Simeon Kelly, was admitted to 3 [facility] Surg Room 330-02. Patient/family oriented to hospital policies and general routines including ID bracelet, bed and alarms, visiting hours, pain management, procedures, bathroom and other care routines, personal items, smoking policy, room service/diet, and visiting hours. Information on how to activate the Rapid Response Team has been discussed. Patient/Family are encouraged to report perceived risks to care and to ask questions if they do not understand what they are told or what they should do.
--- NOTE | 2023-11-20 15:21 | ADMGEN ---
This patient, Simeon Kelly, was admitted to 3 [facility] Surg Room 330-02. Patient/family oriented to hospital policies and general routines including ID bracelet, bed and alarms, visiting hours, pain management, procedures, bathroom and other care routines, personal items, smoking policy, room service/diet, and visiting hours. Information on how to activate the Rapid Response Team has been discussed. Patient/Family are encouraged to report perceived risks to care and to ask questions if they do not understand what they are told or what they should do.
[2023-11-20] MEDS: SENNA/DOCUSATE SODIUM TABLET 2 TAB PO (16:41)
[2023-11-20] MEDS: DICLOFENAC SOD 25 MG TABLET.EC 50 MG PO (17:05)
[2023-11-20] MEDS: ACETAMINOPHEN 325 MG TABLET 650 MG PO ×2 (17:05→23:12)
[2023-11-20] MEDS: LOSARTAN POTASSIUM 25 MG TABLET PO (17:06)
[2023-11-20] MEDS: FAMOTIDINE 20 MG TABLET PO (20:16)
[2023-11-20] MEDS: ASPIRIN 81 MG ENTERIC TABLET PO (20:17)
[2023-11-21 00:01] VITALS: BP 126/80; PULSE 87; RESP 14; TEMP 36.7; O2SAT 98
[2023-11-21] MEDS: ceFAZolin 2 GM/D5W 50 ML 2 GM/50 ML BAG IVPB ×2 (02:01→10:50)
[2023-11-21 04:01] VITALS: BP 116/80; PULSE 81; RESP 16; TEMP 36.4; O2SAT 98
[2023-11-21] MEDS: ACETAMINOPHEN 325 MG TABLET 650 MG PO (06:03)
[2023-11-21 06:10] LABS: Basophils Percent Auto 0.5 % (0.2-1.2); Eosinophils Percent Auto 0.1 % (0-4.4); Hematocrit 38.8 % (42.0-52.0); Hemoglobin 12.4 g/dL (14.0-18.0); Immature Granulocyte Absolute 0.03 K/mm3 (0.00-0.031); Immature Granulocyte Percent A 0.4 % (0-0.5); Lymphocytes Absolute Auto 1.66 K/mm3 (0.9-3.2); Lymphocytes Percent Auto 19.5 % (18.3-44.2); Mean Corpuscular Volume 93.7 fl (80-100); Mean Platelet Volume 11.4 fl (7.4-10.4); Monocytes Absolute Auto 1.3 K/mm3 (0.1-0.6); Monocytes Percent Auto 15.4 % (2.6-8.5); Neutrophils Absolute Auto 5.5 K/mm3 (1.3-6.7); Neutrophils Percent Auto 64.1 % (45.5-73.1); Platelet Count Result 224 k/mm3 (150-375); Red Blood Count 4.14 M/mm3 (4.6-6.20); Red Cell Distribution Width 12.4 % (11.5-14.5); White Blood Count 8.5 K/mm3 (4.5-10.0)
[2023-11-21 07:25] LABS: Anion Gap 6 mmol/L (4-12); Blood Urea Nitrogen 11 mg/dL (9-20); Carbon Dioxide 30 mmol/L (22-30); Chloride 101 mmol/L (98-107); Estimated CRCL calculation 100 ml/min; Estimated Glomerular Filt Rate > 60; Glucose 109 mg/dL (65-110); Potassium 4.1 mmol/L (3.4-5.0); Sodium 137 mmol/L (137-145)
--- NOTE | 2023-11-21 07:51 | PM.DS ---
DS: Admitting Diagnosis Discharge Date 11/21/23 Admitting Diagnosis Hip arthritis DS: Discharge Diagnosis Discharge Diagnosis (1) Status post total hip replacement, left: Code(s): Z96.642 - Presence of left artificial hip joint Status: Acute Assessment and Plan: Postop day 1: Total hip arthroplasty. Patient tolerated procedure well. No complications. Pain manageable with pain medication. No numbness or tingling. We had a lengthy discussion regarding postoperative wound care, limitations, expectations, and exercises. Patient shows good understanding. Patient has had initial physical therapy and is tolerating it well. DVT prophylaxis: 81 mg baby aspirin b.i.d. for 14 days. Short frequent walks. Pain medication: Percocet. Diclofenac. Patient has followup appointment with Dr. Blanco in 3 weeks DS: Summary Hospital Course Reason for hospitalization: Total hip arthroplasty Hospital Course: Patient tolerated procedure well. Has had initial PT/OT. Status at Discharge Functional status at discharge: uses cane/walker Overall status at discharge: patient is progressing back to baseline Time Spent with Patient Time attestation: Total time spent providing and/or coordinating discharge services: Exam Narrative: Normal weight 58 y/o male. Resting comfortably in chair. Wearing compression socks bilaterally. Dressing dry and intact with no drainage. Mild swelling. No ecchymosis. No erythema. No hematoma. Range of motion limited due to pain. Calf nontender. Thigh nontender. Neurologic status intact. No varicosities. Distal pulses palpable. DS: Data Data Completed and Pending Labs on day of discharge: Labs from last 24 hours 11/21/23 11/21/23 11/20/23 06:55 05:51 08:53 WBC 8.5 RBC 4.14 L Hgb 12.4 L Hct 38.8 L MCV 93.7 MCH 30.0 MCHC 32.0 RDW 12.4 Plt Count 224 MPV 11.4 H Immature Gran % (Auto) 0.4 Neut % (Auto) 64.1 Lymph % (Auto) 19.5 [place] % (Auto) 15.4 H Eos % (Auto) 0.1 Baso % (Auto) 0.5 Lymph # (Auto) 1.66 [place] # (Auto) 1.3 H Eos # (Auto) 0.0 Baso # (Auto) 0.0 Abs Immat Gran (auto) 0.03 Absolute Neuts (auto) 5.5 Absolute Nucleated RBC 0.000 Nucleated RBC % 0.0 Sodium 137 Potassium 4.1 Chloride 101 Carbon Dioxide 30 Anion Gap 6 BUN 11 Creatinine 0.80 Estim Creat Clear Calc 100 Estimated GFR > 60 Glucose 109 Calcium 9.0 Blood Type O Negative Antibody Screen Negative Discharge Plan Discharge Patient Disposition: Home, Self-Care Discharge Instructions: See green instruction sheets Patient Instructions: Pain Management After Surgery (DC) Stand Alone Forms: General Discharge Instructions Follow-up/Referrals: Yvette Cee PA [Physician Event Attendant] - Discharge Medications: New aspirin 81 mg tablet,delayed release (DR/EC) 81 mg PO BID 14 Days Qty: 28 0RF oxycodone-acetaminophen 5-325 mg tablet 1 - 2 tablet PO Q4-6H PRN (Reason: pain) 7 Days Qty: 20 0RF Continued multivitamin Tablet 1 tablet PO DAILY paroxetine HCl 10 mg tablet 10 mg PO DAILY cetirizine [Zyrtec] 10 mg Tablet 10 mg PO DAILY losartan 25 mg tablet 25 mg PO QPM acetaminophen 500 mg Tablet 500 mg PO QID PRN (Reason: Pain) cholecalciferol (vitamin D3) 25 mcg (1,000 unit) Capsule 25 mcg PO DAILY maltodextrin Powder See Rx Instructions .ROUTE .COMPLEX Rx Instructions: 1 SCOOP DAILY diclofenac sodium 50 mg tablet,delayed release (DR/EC) 50 mg PO BID Qty: 120 0RF Rx Instructions: discontinue otc alleve and other NSAIDs including Celebrex. Held tramadol 50 mg tablet See Rx Instructions PO BID PRN (Reason: pain) Qty: 60 0RF Hold Instructions: Resume on 12/04/23. Hold while taking Oxycodone. Rx Instructions: 1-2 tablets PO twice a day PRN;
[2023-11-21 08:01] VITALS: BP 149/72; PULSE 87; RESP 22; TEMP 37.2; O2SAT 100
[2023-11-21] MEDS: DICLOFENAC SOD 25 MG TABLET.EC 50 MG PO (09:16)
[2023-11-21] MEDS: ASPIRIN 81 MG ENTERIC TABLET PO (09:17)
[2023-11-21] MEDS: FAMOTIDINE 20 MG TABLET PO (09:17)
[2023-11-21] MEDS: polyethylene glycoL 3350 17 GM POWD.PACK PO (09:17)
[2023-11-21] MEDS: SENNA/DOCUSATE SODIUM TABLET 2 TAB PO (09:17)
[2023-11-21] MEDS: MULTIVITAMINS THERAPEUTIC TAB (*BKC) 1 TABLET PO (09:17)
[2023-11-21] MEDS: PARoxetine 10 MG TABLET PO (09:18)
[2023-11-21] MEDS: oxyCODONE/ACETAMINOPHEN (*CRX) 5-325 MG TABLET 1 TABLET PO (09:18)
[2023-11-21] MEDS: LORATADINE 10 MG TABLET PO (09:18)
[2023-11-21] MEDS: CHOLECALCIFEROL 1,000 UNITS TABLET 1000 UNITS PO (09:25)
--- NOTE | 2023-11-21 10:06 | WPDANESPN ---
Anes - Prog Note Post-Op Date/Time: 11/21/23 10:06 Cardiovascular status: normal Respiratory status: normal Airway patency: baseline Mental status: baseline Post-Op hydration status: normal Vital Signs: Last Vital Signs Temp 37.2 C 11/21/23 08:01 Pulse 87 11/21/23 08:01 Resp 22 H 11/21/23 08:01 BP 149/72 H 11/21/23 08:01 Pulse Ox 100 11/21/23 08:01 O2 Del Method Room Air 11/21/23 08:30 O2 Flow Rate 8 11/20/23 12:45 Pain Score (VAS): 04/26 I/O: Intake & Output 11/20/23 11/21/23 11/21/23 23:59 07:59 15:59 Intake Total 300 600 240 Balance 300 600 240 Laboratory Tests 11/21/23 05:51 11/21/23 06:55 11/21/23 11/21/23 05:51 06:55 WBC 8.5 RBC 4.14 L Hgb 12.4 L Hct 38.8 L MCV 93.7 MCH 30.0 MCHC 32.0 RDW 12.4 Plt Count 224 MPV 11.4 H Immature Gran % (Auto) 0.4 Neut % (Auto) 64.1 Lymph % (Auto) 19.5 [place] % (Auto) 15.4 H Eos % (Auto) 0.1 Baso % (Auto) 0.5 Lymph # (Auto) 1.66 [place] # (Auto) 1.3 H Eos # (Auto) 0.0 Baso # (Auto) 0.0 Abs Immat Gran (auto) 0.03 Absolute Neuts (auto) 5.5 Absolute Nucleated RBC 0.000 Nucleated RBC % 0.0 Sodium 137 Potassium 4.1 Chloride 101 Carbon Dioxide 30 Anion Gap 6 BUN 11 Creatinine 0.80 Estim Creat Clear Calc 100 Estimated GFR > 60 Glucose 109 Calcium 9.0 Post-procedural complaints: none Patient Feedback: Patient satisfied with anesthetic care.
== END 2023-11-21 11:20 | disposition home or self-care (01) ==
LOC: ANHSURGERY 10:45 → ANH3MEDSUR 14:21
PROVIDERS: Physician Assistant Surgical; PCP Family Medicine; Visit Provider Orthopaedic Surgery
PROC: (CPT 27130; principal; 2023-11-20 10:30)
DX: M16.12 Unilateral primary osteoarthritis, left hip (principal); Z87.891 Personal history of nicotine dependence; E66.9 Obesity, unspecified; Z68.30 Body mass index [BMI] 30.0-30.9, adult
CPT/HCPCS: 27130; 36415; 73502; 80048; 85025; 86850; 86900; 86901; 97110; 97161; 97165; A9270; C1776; J0171; J0690; J1100; J1171; J1885; J2003; J2250; J2270; J2405; J2704; J2795; J3010; J7120

== ENCOUNTER 2023-12-07 13:19 | Outpatient (CLI) | payer BC, SELFPAY ==
--- NOTE | ~2023-12-07 | XR_ITS ---
AP view of the pelvis and AP and lateral views of the left hip Clinical history: Pain Findings: No acute fracture or dislocation is seen. Bilateral hip arthroplasties are in place, withou t evidence of complication. Soft tissues are unremarkable. Impression: Bilateral hip arthroplasties in place. No acute abnormality evident. Reviewed, dictated and finalized at location . Impression: Bilateral hip arthroplasties in place. No acute abnormality evident.
== END 2023-12-07 13:20 | disposition home or self-care (01) ==
PROVIDERS: PCP Orthopaedic Surgery; Visit Provider Orthopaedic Surgery
DX: Z47.1 Aftercare following joint replacement surgery (principal); Z96.642 Presence of left artificial hip joint
CPT/HCPCS: 73502